=== PATIENT | female | born 1965 | race Caucasian/White ===

== ENCOUNTER 2017-05-16 20:00 | Emergency (ER) | payer BC ==
[~2017-05-16] VITALS: Ht 167.6 cm; Wt 60.0 kg
[2017-05-16] MEDS ORDERED: PERCOCET 5/31 TABLET PO (22:58)
[2017-05-16 23:47] VITALS: BP 173/102
== END 2017-05-16 23:48 | disposition home or self-care (01) ==
LOC: EME 20:00
PROC: 2W3QX1Z Immobilization of Right Lower Leg using Splint (ICD-10-PCS; principal; 2017-05-16)
DX: S82.831A Other fracture of upper and lower end of right fibula, initial encounter for closed fracture (principal); W17.81XA Fall down embankment (hill), initial encounter; Y92.89 Other specified places as the place of occurrence of the external cause; I10 Essential (primary) hypertension
CPT/HCPCS: 73590; 73610; 73630; 99281; 99285